=== PATIENT | female | born 1980 | race Caucasian/White ===

== ENCOUNTER 2018-07-10 07:04 | Emergency (ER) | payer SELFPAY ==
[~2018-07-10] VITALS: Ht 165.1 cm; Wt 99.8 kg
[2018-07-10 07:10] VITALS: BP 123/79
--- NOTE | 2018-07-10 07:15 | NUR ---
PT AMBULATES W/ STEADY GAIT TO BED 8 AT THIS TIME
--- NOTE | 2018-07-10 07:17 | NUR ---
38YO F TO ER WITH C/O VAGINAL BLEEDING AND ABD CRAMPING. PT STATES UPON WAKING FELT WET AND REALIZED SHE WAS BLEEDING. RED CLOTS WITH BRIGHT RED BLOOD. LS CLEAR THROUGHOUT, ABD ROUND SOFT NON TENDER, AAOX4. WILL CONTINUE TO MONITOR, ER MD MADE AWARE .
--- NOTE | 2018-07-10 07:20 | NUR ---
PT AMBULATED TO THE BATHROOM
--- NOTE | 2018-07-10 07:24 | NUR ---
Patient being evaluated by physician at bedside.
--- NOTE | 2018-07-10 07:41 | NUR ---
US tech at bedside for exam.
--- NOTE | 2018-07-10 08:32 | NUR ---
Dr. Moeller re-evaluating patient at bedside.
[2018-07-10 08:52] LABS: BASOPHILS % (AUTO) 0.4 % (0.0-2.0); EOSINOPHILS # (AUTO) 0.1 K/uL (0-0.4); EOSINOPHILS % (AUTO) 1.1 % (0.0-4.0); HEMATOCRIT 35.8 % (36-48); HEMOGLOBIN 11.4 g/dL (12.0-16.0); LYMPHOCYTES # (AUTO) 1.5 K/uL (2.5-16.5); LYMPHOCYTES % (AUTO) 27.5 % (20.5-51.1); MEAN CORPUSCULAR HEMOGLOBIN 27 pg (27-31); MEAN CORPUSCULAR HGB CONC 32 g/dL (33-37); MEAN CORPUSCULAR VOLUME 85.2 fL (80-94); MONOCYTES # (AUTO) 0.4 K/uL (0.8-1.0); MONOCYTES % (AUTO) 6.3 % (1.7-9.3); NEUTROPHILS # (AUTO) 3.6 K/uL (1.8-7.7); NEUTROPHILS % (AUTO) 64.7 % (42.2-75.2); PLATELET COUNT (AUTO) 201 K/uL (140-450); WHITE BLOOD COUNT (AUTO) 5.6 K/uL (4.8-10.8)
[2018-07-10 09:25] LABS: APPEARANCE,URINE SL CLOUDY (CLEAR); BILIRUBIN,URINE NEGATIVE (NEGATIVE); BLOOD, URINE 3+ (NEGATIVE); COLOR,URINE YELLOW (YELLOW); LEUKOCYTE ESTERASE ,URINE NEGATIVE (NEGATIVE); NITRITE, URINE NEGATIVE (NEGATIVE); PH,URINE 8.5 (5.0-9.0); UGLUCOSE NEGATIVE (NEGATIVE)
[2018-07-10 09:29] VITALS: BP 125/72
--- NOTE | 2018-07-10 09:29 | NUR ---
Patient discharged with v/s stable. Written and verbal after care instructions given and explained. Patient verbalized understanding. Ambulatory with steady gait. All questions addressed prior to discharge. Advised to follow up with PMD.
[2018-07-10 09:35] LABS: RBC,URINE 50-80 /HPF (0-5); WBC,URINE 0-5 (RARE) /HPF (0-5)
== END 2018-07-10 09:29 | disposition home or self-care (01) ==
LOC: MED 07:04
DX: O20.0 Threatened abortion (principal); Z3A.08 8 weeks gestation of pregnancy
CPT/HCPCS: 36415; 76801; 81001; 81002; 81025; 82948; 84702; 85025; 86900; 86901; 99285; Q0092